=== PATIENT | female | born 1950 | race Two or more races ===

== ENCOUNTER 2020-02-04 05:50 | Day surgery (SDC) | payer OTHER ==
[~2020-02-04 05:50] MED LIST: ATORVASTATIN CA10 MG PO; IRBESARTAN75 MG PO; JANUMET XR 50-1 EACH PO
== END 2020-02-04 15:10 | disposition home or self-care (01) ==
LOC: CIR.AMB 05:50
PROVIDERS: ATTEND Specialist
DX: N84.0 Polyp of corpus uteri (principal); Z20.828 Contact with and (suspected) exposure to other viral communicable diseases